=== PATIENT | male | born 1945 | race Caucasian/White ===

== ENCOUNTER 2024-01-21 13:37 | Emergency (ER) | payer OTHER, SELFPAY ==
[2024-01-21 13:40] VITALS: BP 146/50
[2024-01-21 14:08] VITALS: BP 145/63
[2024-01-21 14:17] VITALS: BMI 23.0
--- NOTE | 2024-01-21 14:19 | ED.GENMED ---
History of Present Illness
General
Chief Complaint: Rectal Bleeding
Source: patient and family
Exam Limitations: none
Time Seen by Provider: 01/21/24 13:59
Nursing documentation reviewed up to this point in time: agreed with
Travel History
Have you had any contact with someone who has COVID-19?: No
Do you have any symptoms of coronavirus? Fever > 100 degrees, chills, cough, shortness of breath, sore throat, loss of taste or smell, muscle aches, or headache?: No
History of Present Illness
History of Present Illness:
78-year-old gentleman with history of dementia, CVA, HTN, HLD, HI, Carotid endarterectomy on Pl[place], IDDM presents with family. states she went into the bathroom and the toilet water was red with blood. She flushed and had the patient come and
sit on toilet, he had no BM but she noted a little blood in toilet. She put him in the shower and blood was dripping in the tub and on the floor when he got out of the toilet. She can't figure out where it is coming from.
Pt denies pain. Denies CP, SOB, abdominal pain.
Past History
Past History
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
ED Past Surgical History: Cardiac (Stenting, carotid endarterectomy)
Social History
Tobacco: Former smoker
Alcohol: Occasional
Drug: None
Personal:
Living: with family
Review of Systems
Review of Systems
Allergies reviewed?: Yes
Unable to obtain full review of systems at this time due to: dementia
Other source history: family
All Other Systems: ROS reviewed and negative except as documented in HPI and ROS
Constitutional: Denies fever
Respiratory: Denies trouble breathing
Cardiac: Denies chest pain
ABD/GI: Denies abdominal pain, nausea, vomiting, diarrhea, bloody stools or black stools
: Reports other (anterior aspect of scrotum is very red and chaffed); Denies dysuria, frequency, difficulty voiding or urgency
Musculoskeletal: Denies edema
Neurological: Denies headache or weakness
Phy Exam
Physical Exam
Physical Exam:
GENERAL: No acute distress. A&Ox3.
CONSTITUTIONAL: Afebrile.
EYES: Clear, conjunctivae normal
ENMT: moist mucus membranes
RESPIRATORY: Regular respirations, nonlabored, lungs clear.
CARDIOVASCULAR: Regular rate and rhythm, no murmurs, no rubs.
GI: Soft, nontender, normal BS
: Urine yellow, penis uncircumcised, no indication of bleeding from urethra. Anterior surface of scrotum is erythematous, few hairs with dried blood.
Rectal: Brown stool, heme negative
MUSCULOSKELETAL: Moves with ease. Well perfused.
SKIN: Warm, dry, pink
PSYCH: Calm mood and affect. Well kept, interactive, follows commands
NEUROLOGIC: Awake, alert and demented. Not oriented. No focal neurological deficits
Course
Orders/Labs/Results
Orders:
Orders
01/21/24 14:20
Type+Screen Urgent
CMP [Comprehensive Metabolic Panel] Urgent
Complete Blood Count/With Diff Urgent
PTT Urgent
Prothrombin Time Urgent
01/21/24 14:42
Urinalysis Reflex To Culture Urgent
Date Specimen was Collected: 01/21/24
Time Specimen was Collected: 14:39
Urine Microscopic Reflex Cult Urgent
Urine Culture Urgent
JESSICA Source: U
Specimen Description:
Date Specimen was Collected: 01/21/24
Time Specimen was Collected: 14:39
01/21/24 16:10
0.9% Sodium Chloride 500 ml [Nss] 500 ml IV BOLUS
01/21/24 16:18
Fosfomycin [Monurol] 3 gm PO ONCE ONE
Abnormal Lab Results
01/21/24 01/21/24
14:20 14:42
RBC 4.18 L 10^6/uL
(4.70-6.10)
Hgb 12.7 L g/dL
(13.0-18.0)
Hct 38.4 L %
(39.0-52.0)
Absolute Monos (auto) 0.9 H 10^3/uL
(0.1-0.6)
Monocytes % 11.2 H %
(1.7-9.3)
BUN 30 H mg/dl
(9-20)
Glucose 280 H mg/dl
(70-99)
Ur Occult Blood Reflex 3+ A
(Negative)
Leukocyte Esterase Rfl 1+ A
(Negative)
Urine RBC 3-6 A /HPF
(0-2)
Urine WBC (Reflex) 26-30 A /HPF
(0-5)
Urine Bacteria (Reflex) Few A
(Negative)
Urine Glucose 3+ A
(Negative)
Urine Albumin (Reflex) 1+ A
(Neg - Trace)
01/21/24 14:20
01/21/24 14:20
Vital Signs
Initial and Last Documented VS:
Initial Vital Signs
Temp Pulse Resp BP Pulse Ox
98.1 F 62 18 146/50 96
01/21/24 13:40 01/21/24 13:40 01/21/24 13:40 01/21/24 13:40 01/21/24 13:40
Last Documented Vital Signs
Temp Pulse Resp BP Pulse Ox
98.1 F 68 16 182/76 96
01/21/24 13:40 01/21/24 17:21 01/21/24 17:21 01/21/24 17:21 01/21/24 17:21
MDM/Problems Addressed
Differential Diagnosis Includes:
hematuria, rectal bleed, skin injury to scrotum/penis
MDM/Problems Addressed:
78-year-old gentleman with history of dementia, CVA, HTN, HLD, HI, Carotid endarterectomy on [place], IDDM presents with family. states she went into the bathroom and the toilet water was red with blood. She flushed and had the patient come and
sit on toilet, he had no BM but she noted a little blood in toilet. She put him in the shower and blood was dripping in the tub and on the floor when he got out of the toilet. She can't figure out where it is coming from.
Pt denies pain. Denies CP, SOB, abdominal pain.
and son at bedside wonder if maybe he got his scrotum caught in the zipper of his jeans. Son states patient is constantly fighting with to keep his jeans on, sometimes she gets him ready for bed and that she finds it in bed with his jeans
on.
4:00 PM
CBC with no clinically significant abnormality
CMP with no clinically significant abnormality BUN 30, IV fluids infusing for mild dehydration
UA: 3+ occult blood, +1 leukocyte Estrace, nitrates negative, RBCs 3-6, WBCs 26-30, few bacteria, 3+ urine glucose and +1 urine albumin
Urine culture pending
Will give Monurol in meantime.
All test results and plan discussed with and son. All questions answered.
there is no blood on clean pad placed over penis and scrotum 1 hour ago.
Unclear where the bleeding came from, no sign of significant bleeding.
Family will observe,
*Critical Care Note
Total Time (30-74mins, 75-104mins- exclusive of procedures): Not Applicable
ED Attending Note
-
Portions of this chart may have been created with voice recognition software.� Occasional wrong word or��sound alike� substitutions may have occurred due to the inherent limitations of voice recognition software.
Discharge Plan
Departure
Patient Disposition: Home (Routine Discharge)
Date of Disposition: 01/21/24
Time of Disposition: 17:02
Patient with high blood pressure during this ER visit?: No
Condition: Good
Discharge Problem:
Abrasion of scrotum
Instructions: Abrasions ED
Prescriptions:
No Action
carvedilol 12.5 MG tablet
12.5 mg PO BID
clopidogrel 75 MG tablet
75 mg PO DAILY
rosuvastatin 40 MG tablet
20 mg PO DAILY
Levemir U-100 Insulin 1,000 UNITS/10 ML solution
18 units SC HS Qty: 1 0RF
Vitamin C Plus Zinc 200-100 mg Tablet
1 tab PO DAILY
levothyroxine 25 mcg Tablet
25 mcg PO DAILY
lisinopril 10 mg Tablet
10 mg PO DAILY
memantine 10 mg Tablet
10 mg PO DAILY
cholecalciferol (vitamin D3) [Vitamin D3] 25 mcg (1,000 unit) Tablet
25 mcg PO DAILY
magnesium citrate 100 mg Tablet
200 mg PO DAILY
alogliptin 12.5 mg Tablet
12.5 mg PO DAILY
empagliflozin 25 mg Tablet
12.5 mg PO DAILY
Referrals:
Jose Maria Castro MD [Family Provider] - As needed
Activity Restrictions/Additional Instructions:
As we discussed, I am not sure where the bleeding came from.
Urinalysis shows a potential early urinary tract infection so we treated you with 1 dose of Monurol antibiotic.
The urine cultures should be back in 2 to 3 days and if there is a need for a different antibiotic we will contact you.
Possible that you chafed the scrotum and the tip of the penis with the zipper of your pants.
There is no sign of rectal bleeding, no sign of significant bleeding from the penis.
Interventions
Interventions:
*Risk Screen - Suicide Last Done: 01/21/24 13:52
*General Assessment Last Done: 01/21/24 14:17
*Neglect/Abuse Screening Last Done: 01/21/24 13:52
ED- Fall Risk Assessment Last Done: 01/21/24 14:19
*ED COVID-19 Vaccine History Last Done: 01/21/24 13:40
*Nursing Disposition Last Done: 01/21/24 17:21
MZ-Wwmzpu-Rdhbzvegxw Assessment Last Done: 01/21/24 13:52
ED- Cardiac Assessment Last Done: 01/21/24 13:52
ED- Pulmonary Assessment Last Done: 01/21/24 13:52
Discharge Date and Time
Discharge Date/Time: 01/21/24 17:15
Print Language: CITIZEN OF [place]
[2024-01-21 14:31] LABS: % Basophils 0.3 % (0-2); % Eosinophils 2.5 % (0-6); % Immature Granulocytes 0.4 % (0-0.5); % Lymphocytes 21.5 % (20.5-51.1); % Monocytes 11.2 % (1.7-9.3); % Neutrophils 64.1 % (42.2-75.2); Absolute Eosinophils 0.2 10^3/uL (0-0.7); Absolute Lymphocytes 1.6 10^3/uL (1.2-3.4); Absolute Monocytes 0.9 10^3/uL (0.1-0.6); Absolute Neutrophils 4.9 10^3/uL (1.4-6.5); Hematocrit 38.4 % (39.0-52.0); Hemoglobin 12.7 g/dL (13.0-18.0); Mean Corp Hgb Conc. 33.1 g/dL (33.0-37.0); Mean Corpuscular Hgb 30.4 pg (27.0-31.0); Mean Corpuscular Volume 91.9 fL (80.0-94.0); Mean Platelet Volume 9.2 fL (7.4-10.4); Nucleated Red Blood Cells % 0 % (-); Platelet Count 172 10^3/uL (130-400); Red Blood Cell Count 4.18 10^6/uL (4.70-6.10); Red Cell Dist. Width 13.6 % (11.5-14.5); White Blood Cell Count 7.6 10^3/uL (4.8-10.8)
[2024-01-21 14:42] LABS: INR 1.16; PT 14.6 Sec (11.4-14.6)
[2024-01-21 14:43] LABS: APTT 26.2 Sec (23.4-35.0)
[2024-01-21 14:48] LABS: ALT (SGPT) 19 U/L (0-50); AST (SGOT) 25 U/L (17-59); Albumin 3.5 g/dl (3.5-5.0); Alkaline Phosphatase 59 U/L (38-126); Blood Urea Nitrogen 30 mg/dl (9-20); Calcium 9.2 mg/dl (8.4-10.2); Carbon Dioxide 25 mmol/L (22-30); Chloride 105 mmol/L (98-107); Estimated Creatinine Clearance 51 ml/min; Glucose 280 mg/dl (70-99); Potassium 4.6 mmol/L (3.5-5.1); Sodium 137 mmol/L (135-145); Total Bilirubin 0.4 mg/dl (0.2-1.3); Total Protein 6.5 g/dl (6.3-8.2); eGFR > 60.00
[2024-01-21 14:57] LABS: Urine Albumin 1+ (Neg - Trace); Urine Bilirubin Negative (Negative); Urine Character Clear (Clear); Urine Color Straw; Urine Glucose 3+ (Negative); Urine Ketone Negative (Negative); Urine Leukocyte 1+ (Negative); Urine Nitrite Negative (Negative); Urine Occult Blood 3+ (Negative); Urine Urobilinogen Negative (Neg - 1+)
[2024-01-21 15:00] VITALS: BP 143/62
[2024-01-21 15:34] LABS: Urine Bacteria Few (Negative); Urine Squamous Cell >30 /LPF (Few); Urine White Cell 26-30 /HPF (0-5)
[2024-01-21 16:01] VITALS: BP 158/65
[2024-01-21] MEDS: NSS 500 IV (16:19)
[2024-01-21] MEDS: MONUROL 3 GM PO (16:24)
[2024-01-21 17:00] VITALS: BP 182/76
--- NOTE | 2024-01-21 17:18 | EDRN ---
Reviewed discharge instructions with patient's . Verbalized understanding. Taken to car in wheelchair.
[2024-01-21 17:21] VITALS: BP 182/76
== END 2024-01-21 17:15 | disposition home or self-care (01) ==
LOC: EMR 13:37
PROVIDERS: Registered Nurse; EMERGENCY PHYSICIAN Emergency Medicine; FAMILY PHYSICIAN Family Medicine
DX: S30.813A Abrasion of scrotum and testes, initial encounter (principal); X58.XXXA Exposure to other specified factors, initial encounter; F03.90 Unspecified dementia, unspecified severity, without behavioral disturbance, psychotic disturbance, mood disturbance, and anxiety; I25.10 Atherosclerotic heart disease of native coronary artery without angina pectoris; I10 Essential (primary) hypertension; E78.00 Pure hypercholesterolemia, unspecified; E11.9 Type 2 diabetes mellitus without complications; Z87.891 Personal history of nicotine dependence
CPT/HCPCS: 99284; 96360; 80053; 81003; 81015; 85025; 85610; 85730; 86850; 86900; 86901; 87086

== ENCOUNTER 2024-04-22 14:32 | Inpatient (IN) | payer OTHER, SELFPAY ==
[2024-04-22 11:55] VITALS: BP 150/52
[2024-04-22 12:06] VITALS: BMI 22.7
--- NOTE | 2024-04-22 12:12 | ED.GENMED ---
History of Present Illness
General
Chief Complaint: Chest Pain
Source: patient
Exam Limitations: none
Time Seen by Provider: 04/22/24 12:03
Nursing documentation reviewed up to this point in time: agreed with
History of Present Illness
History of Present Illness:
Patient with history of CAD, dementia, as well as mild speech impairment secondary to CVA, presents to ED secondary to intermittent chest pain since last night. Per spouse, patient was grabbing his left side of the chest and expressing pain, but
was not able to provide any further information. Chest pain occurred on multiple occasions last night, as well as this morning. However, patient was able to sleep without any chest pain. Upon arrival to ED, patient is describing left side of his
chest, but unable to provide any further information at this time. Spouse states that patient has been healthy recently, without any acute changes. Patient last had heart attack over 15 years ago.
Past History
Past History
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
ED Past Surgical History: Cardiac (Stenting, carotid endarterectomy)
Social History
Tobacco: Former smoker
Alcohol: Occasional
Drug: None
Personal:
Living: with family
Review of Systems
Review of Systems
Allergies reviewed?: Yes
Unable to obtain full review of systems at this time due to: dementia
All Other Systems: Not applicable
Phy Exam
Physical Exam
Physical Exam:
Physical Exam
General: no apparent distress, not acutely ill. afebrile
Head: nc/at. eomi
Neck: supple. no meningeal signs.
Heart: s1/s2 regular rate and rhythm, no murmur. equal radial pulses.
Lungs: no acute respiratory distress. clear bilaterally. chest wall nontender to palpation
Abdomen: normal bowel sounds. not tender.
Neuro: alert and oriented. no focal neurological deficits
Skin: no rash
Psychiatric: well kept. interactive and cooperative
Extremities: no edema. no calf tenderness.
Scores
Heart Score for Chest Pain Patients
STEMI patient?: No
History: Moderately Suspicious
ECG: Normal
Age: >/= 65 years
Risk Factors: >/= 3 Risk Factors or History of CAD
Troponin: >1 - <3 x Normal Limit
Heart Score for Chest Pain Patients: 6
Heart Score Risk: 20.3% MACE over next 6 weeks
Course
Orders/Labs/Results
Orders:
Orders
04/22/24 11:49
ECG [Electrocardiogram (*1)] Urgent
Reason for Study: Chest Pain
EKG- Treatment ONCE
04/22/24 12:14
CR Chest - 2 Views Urgent
Comment:
Reason For Exam: chest pain
04/22/24 12:17
Complete Blood Count/With Diff Urgent
Comprehensive Metabolic Panel Urgent
Troponin I Urgent
04/22/24 12:20
Electrocardiogram (*1) Urgent
Reason for Study: Chest Pain
EKG- Treatment ONCE
04/22/24 13:04
Aspirin Chewable [Low Strength Aspirin] 324 mg PO NOW STA
04/22/24 13:37
Admit/Transfer Patient As Directed
Co-Sign Provider:
Level of Care: Inpatient admission
Assign to:: IVU
Physician / Group: hospitalist
Diagnosis: NSTEMI
Reason for Hospitalization: NSTEMI
Expected length of stay greater than two midnights?: Yes
ELOS- Estimated Length of Stay in days: 3
I certify the patient meets the requirements for IP care: Yes
04/22/24 13:40
PRN Pain Medication Management As Directed
May give lesser potent ordered pain med per pt: Yes
preference::
Protocol:: Medication orders for pain may be administered in a
manner that supports deferring to patient preference
when the pt is:
- Requesting an ordered lesser potent pain medication.
Least to most potent pain medications are defined
as: acetaminophen < NSAID < tramadol < opioids
(morphine, oxycodone, hydromorphone).
- Requesting a lesser dose of the same medication IF
ORDERED.
- Requesting a less intrusive route of administration
if both routes are prescribed by the provider (PO <
IV).
04/22/24 14:20
Speech Therapy Eval & Treat Routine
04/22/24 14:23
Heparin Protocol- PTT Orders As Directed
PTT per Heparin protocol: -Obtain CBC and baseline PTT - if not already collected.
-Obtain PTT 6 hours from start of infusion. Then, every 6 hours until 2 consecutive
PTT's are therapeutic. Then, PTT Daily.
-With each rate change, obtain PTT every 6 hours until 2 consecutive PTT's are
therapeutic. Then, PTT Daily.
Notify MD As Directed
Notify physician if: PTT is greater than or equal to 200.
04/22/24 14:30
Heparin 65493 Units/250 ml 25,000 units in 250 ml IV PER PROTOCOL
Weight to be used for heparin protocol in kilograms (kg):: 71.8
Protocol:: Cardiac Tx/Acute Coronary
PTT Goal Range to be used:: PTT 73 to 111 seconds
Order type:: Initial
INITIAL Infusion Dose (UNITS/KG/hr) & then follow protocol:: 12 units/kg/hr
Infusion Dose in UNITS/hr & then follow protocol (UNITS/hr):: 850
INFUSION RATE in mL/hr & then follow protocol (mL/hr):: 8.5
PTT less than or equal to 64 seconds:: Increase rate by 200 units/hr (+ 2 mL/hr)
PTT 64.1 to 72.9 seconds:: Increase rate by 100 units/hr (+ 1 mL/hr)
PTT 73 to 111 seconds:: Target Range. No change in rate.
PTT 111.1 to 130.9 seconds:: Decrease rate by 100 units/hr (- 1 mL/hr)
PTT 131 to 199.9 seconds:: HOLD for 1 hr. Then decrease rate by 200 units/hr (- 2 mL/hr)
PTT greater than or equal to 200 seconds:: HOLD for 2 hrs & Notify Provider. Then decrease by 200 units/hr (-
2 mL/hr)
Lab follow-up:: Each change, PTT q6h until 2 consecutive are therapeutic. Then PTT
daily.
04/22/24 14:48
COVID-19 Antigen Urgent
Source: Nasal Swab
Complete Blood Count/No Diff Urgent
Comment: Obtain baseline before beginning heparin infusion if not already collected
PTT Urgent
Comment: Obtain baseline before beginning heparin infusion if not already collected
04/22/24 16:00
CefTRIAXone [Rocephin] 1,000 mg IV Q24H
Sterile Water [Sterile Water For Injection] 10 ml IV Q24H
04/22/24 17:09
Heparin Protocol- PTT Orders As Directed
PTT per Heparin protocol: -Obtain CBC and baseline PTT - if not already collected.
-Obtain PTT 6 hours from start of infusion. Then, every 6 hours until 2 consecutive
PTT's are therapeutic. Then, PTT Daily.
-With each rate change, obtain PTT every 6 hours until 2 consecutive PTT's are
therapeutic. Then, PTT Daily.
Notify MD As Directed
Notify physician if: PTT is greater than or equal to 200.
04/22/24 17:47
Complete Blood Count/No Diff Urgent
Comment: Obtain baseline before beginning heparin infusion if not already collected
PTT Urgent
Comment: Obtain baseline before beginning heparin infusion if not already collected
Troponin I Urgent
04/23/24 06:00
Levothyroxine [Synthroid] 75 mcg PO DAILY @ 0600
04/23/24 08:00
Cholecalciferol (Vitamin D3) [VITAMIN D3 (cholecalciferol)] 50 mcg PO DAILY
Dapagliflozin [Farxiga] 10 mg PO DAILY
Memantine HCl [Namenda] 10 mg PO DAILY
Rosuvastatin Calcium [Crestor] 20 mg PO DAILY
Sitagliptin Phosphate [Januvia] 100 mg PO DAILY
ascorbic acid-zinc sulfate 1 tablet PO DAILY
magnesium glycinate 100 mg PO DAILY
04/24/24 04:40
Complete Blood Count/No Diff Q2D
Comment: Notify MD if platelet count is <130,000 or decreases by 50% from baseline
04/26/24 06:00
Complete Blood Count/No Diff Q2D
Comment: Notify MD if platelet count is <130,000 or decreases by 50% from baseline
04/28/24 06:00
Complete Blood Count/No Diff Q2D
Comment: Notify MD if platelet count is <130,000 or decreases by 50% from baseline
04/30/24 06:00
Complete Blood Count/No Diff Q2D
Comment: Notify MD if platelet count is <130,000 or decreases by 50% from baseline
05/02/24 06:00
Complete Blood Count/No Diff Q2D
Comment: Notify MD if platelet count is <130,000 or decreases by 50% from baseline
05/04/24 06:00
Complete Blood Count/No Diff Q2D
Comment: Notify MD if platelet count is <130,000 or decreases by 50% from baseline
05/06/24 06:00
Complete Blood Count/No Diff Q2D
Comment: Notify MD if platelet count is <130,000 or decreases by 50% from baseline
05/08/24 06:00
Complete Blood Count/No Diff Q2D
Comment: Notify MD if platelet count is <130,000 or decreases by 50% from baseline
Abnormal Lab Results
04/22/24
12:17
RBC 4.20 L 10^6/uL
(4.70-6.10)
Hgb 12.8 L g/dL
(13.0-18.0)
Hct 38.9 L %
(39.0-52.0)
MCHC 32.9 L g/dL
(33.0-37.0)
Absolute Monos (auto) 0.7 H 10^3/uL
(0.1-0.6)
BUN 30 H mg/dl
(9-20)
Glucose 277 H mg/dl
(70-99)
Troponin I 0.405 H* ng/ml
04/22/24 12:17
04/22/24 12:17
Vital Signs
Initial and Last Documented VS:
Initial Vital Signs
Temp Pulse Resp BP Pulse Ox
98.0 F 60 16 150/52 97
04/22/24 11:55 04/22/24 11:55 04/22/24 11:55 04/22/24 11:55 04/22/24 11:55
Last Documented Vital Signs
Temp Pulse Resp BP Pulse Ox
97.9 F 64 17 149/54 96
04/24/24 04:31 04/23/24 19:45 04/24/24 04:31 04/23/24 19:02 04/24/24 04:31
MDM/Problems Addressed
MDM/Problems Addressed:
History, exam, and blood work concerning for non-STEMI. Patient remains chest pain-free during observation, along with stable vital signs.
Aspirin 325 mg given. Further treatment, pending cardiology consultation.
Dr. Napoles, cardiology, contacted via [facility] text, who will come and evaluate patient in ED.
*EKG
Interpreted by ED Provider?: Yes
EKG Intrepretation Date: 04/22/24
Heart Rate: 61
Rate: normal
Rhythm: sinus
[address]: normal axis
Interval: first degree heart block
QRS Pattern: left bundle branch block
*Critical Care Note
Total Time (30-74mins, 75-104mins- exclusive of procedures): Not Applicable
ED Attending Note
-
Portions of this chart may have been created with voice recognition software.� Occasional wrong word or��sound alike� substitutions may have occurred due to the inherent limitations of voice recognition software.
Discharge Plan
Departure
Patient Disposition: Admit
Date of Disposition: 04/22/24
Time of Disposition: 13:09
Admit to: Telemetry
Presentation/result/management discussed w/ accepting MD/DO: Hospitalist
Discharge Problem:
Non-ST elevation HI (NSTEMI)
Interventions
Interventions:
*Risk Screen - Suicide Last Done: 04/22/24 18:24
*General Assessment Last Done: 04/22/24 11:53
*Neglect/Abuse Screening Last Done: 04/22/24 11:53
*ED COVID-19 Vaccine History Last Done: 04/22/24 18:19
*Nursing Disposition Last Done: 04/22/24 17:23
ED- Cardiac Assessment Last Done: 04/22/24 12:22
Discharge Date and Time
Discharge Date/Time: 04/22/24 17:25
[2024-04-22 12:35] LABS: % Basophils 0.3 % (0-2); % Eosinophils 3.3 % (0-6); % Immature Granulocytes 0.3 % (0-0.5); % Lymphocytes 21.5 % (20.5-51.1); % Monocytes 8.5 % (1.7-9.3); % Neutrophils 66.1 % (42.2-75.2); Absolute Eosinophils 0.3 10^3/uL (0-0.7); Absolute Lymphocytes 1.9 10^3/uL (1.2-3.4); Absolute Monocytes 0.7 10^3/uL (0.1-0.6); Absolute Neutrophils 5.7 10^3/uL (1.4-6.5); Hematocrit 38.9 % (39.0-52.0); Hemoglobin 12.8 g/dL (13.0-18.0); Mean Corp Hgb Conc. 32.9 g/dL (33.0-37.0); Mean Corpuscular Hgb 30.5 pg (27.0-31.0); Mean Corpuscular Volume 92.6 fL (80.0-94.0); Mean Platelet Volume 9.5 fL (7.4-10.4); Nucleated Red Blood Cells % 0 % (-); Platelet Count 141 10^3/uL (130-400); Red Cell Dist. Width 13.5 % (11.5-14.5); White Blood Cell Count 8.7 10^3/uL (4.8-10.8)
[2024-04-22 12:46] LABS: ALT (SGPT) 20 U/L (0-50); AST (SGOT) 26 U/L (17-59); Albumin 3.5 g/dl (3.5-5.0); Alkaline Phosphatase 68 U/L (38-126); Blood Urea Nitrogen 30 mg/dl (9-20); Calcium 9.7 mg/dl (8.4-10.2); Carbon Dioxide 25 mmol/L (22-30); Chloride 105 mmol/L (98-107); Estimated Creatinine Clearance 46 ml/min; Glucose 277 mg/dl (70-99); Potassium 4.7 mmol/L (3.5-5.1); Sodium 140 mmol/L (135-145); Total Bilirubin 0.4 mg/dl (0.2-1.3); Total Protein 6.4 g/dl (6.3-8.2); eGFR 55.53
--- NOTE | 2024-04-22 12:54 | PHANOTE ---
Insulin degludec and levothyroxine doses verified with [facility] in [facility] [[phone]].
[2024-04-22 12:58] LABS: Troponin I 0.405 ng/ml
[2024-04-22] MEDS: LOW STRENGTH ASPIRIN 324 MG PO (13:14)
[2024-04-22 13:20] VITALS: BP 142/95
--- NOTE | 2024-04-22 14:37 | HPS.HSE ---
Family Physician
-
Family Physician: Jose Maria Castro
Chief Complaint
-
Chest pain
History of Present Illness
78-year-old male with past medical history of hypertension, hyperlipidemia, ME x2 s/p stent placed TIA type 2 diabetes, COPD (emphysema) dementia, left bundle branch block, ischemic cardiomyopathy former smoker, presented to the ED with chest pain.
at bedside states that patient complained of chest pain yesterday night after dinner. He described the left sided chest pain as dull,crushing, non radiating to the shoulders, which comes and goes. They had chicken paulson and she presumed
that it could be heartburn for which she gave him 2 Tums. Patient did not wake up at night with chest pain. He woke up only to use the restroom. This morning patient reported of similar pain and decided to bring him to the ED patient denies
chest pain, shortness of breath, palpitations. He does have speech deficit due to prior stroke. At this time he denies any chest pain. He follows cardiology Dr. Cavanaugh outpatient. Previous echocardiogram was done 1 year ago which showed EF 45%,
stage I diastolic dysfunction.
Medical History
Past Medical History
Past Medical History: Reports CAD, CHF, COPD, CVA, Dementia, HTN, Hypercholesterolemia, Hypothyroidism and IDDM
Past Surgical History: Reports Cardiac (right carotid endarterectomy, stent placement)
Social History
Unable to obtain full social history at this time due to: Dementia
Tobacco: Former Smoker
Alcohol: None
Drug: None
Personal:
Living: With Family
Employment: Retired
Family History
Family History: Not pertinent
Allergies / Home Medications
Allergies reflects when Allergies were last updated in [employer]
Home Medications with original date entered in [employer]
Allergy/Medication List:
Allergies
Allergy/AdvReac Type Severity Reaction Status Date / Time
No Known Allergies Allergy Verified 04/22/24 11:54
Home Medications
clopidogrel 75 mg tablet 75 mg PO DAILY Blood Clot Prevention/Tx 05/27/16
rosuvastatin 40 mg tablet 20 mg PO DAILY high cholesterol 05/27/16
alogliptin 12.5 mg tablet 12.5 mg PO DAILY diabetes 01/21/24
ascorbic acid 100 mg-zinc sulfate 200 mg tablet 1 tab PO DAILY supplement 01/21/24
cholecalciferol (vitamin D3) 25 mcg (1,000 unit) tablet (Vitamin D3) 50 mcg PO DAILY supplement 01/21/24
empagliflozin 25 mg tablet 12.5 mg PO DAILY diabetes 01/21/24
lisinopril 10 mg tablet 10 mg PO DAILY blood pressure 01/21/24
memantine 10 mg tablet 10 mg PO DAILY cognition/memory 01/21/24
carvedilol 25 mg tablet 12.5 mg PO BID blood pressure 04/22/24
insulin degludec 100 unit/mL (3 mL) subcutaneous pen 16 unit SC HS diabetes 04/22/24
levothyroxine 75 mcg tablet 75 mcg PO DAILY hypothyroidism 04/22/24
magnesium glycinate 100 mg (as glycinate) tablet 100 mg PO DAILY supplement 04/22/24
Review of Systems
-
History Source: Patient and Family
Cardiac: Reports Chest Pain
Physical Exam
Vital Signs
Vital Signs
Temp Pulse Resp BP Pulse Ox
98.0 F 62 19 142/95 96
04/22/24 11:55 04/22/24 13:20 04/22/24 13:20 04/22/24 13:20 04/22/24 13:20
Physical Exam
General: Comfortable and Conversant
HEENT: NormoCephalic and Moist mucous membranes
Respiratory: Clear
Cardiac: Regular Rhythm and Murmur (systolic left upper ans mid sternal )
GI: Soft, Non Tender and Non Distended
Musculoskeletal: No Edema
Neuro: AO x 3, No Motor Deficits and Slurred Speech
Psych: Calm
Laboratory Results
-
04/22/24 12:17
Laboratory Results
Total Bilirubin 0.4 mg/dl (0.2-1.3) 04/22/24 12:17
AST 26 U/L (17-59) 04/22/24 12:17
ALT 20 U/L (0-50) 04/22/24 12:17
Alkaline Phosphatase 68 U/L (38-126) 04/22/24 12:17
Troponin I 0.405 ng/ml H* 04/22/24 12:17
Data Reviewed
-
Medical Tests (Nuc Med, Echo, EKG etc): Report Reviewed by me and Discussed with Physician
Lab Data: Labs Reviewed by me and Discussed with Physician
Impression/Plan
-
IMPRESSION:
Chest pain likely due to non-STEMI
Cough likely related to aspiration pneumonia
History of TIA
Type 2 diabetes mellitus
Hyperlipidemia
Hypertension
Dementia
PLAN:
Chest pain likely due to NSTEMI
Transfer to IVU
Morphine, oxygen, nitroglycerin, aspirin
Troponin is 0.405, trend troponin levels every 3-6 hours
Repeat EKG
Continue high intensity statin - Rosuvastatin 40 mg
Antiplatelet therapy- Aspirin 81 plus Plavix 75
Start heparin GTT to prevent clot
Check echocardiogram
Consults cardiology
Cough likely aspiration PNA
Cough has been chronic but due to patient's dementia and he was inhaling food, he is at a risk for aspirations.
Patient is afebrile with no leukocytosis
CXR - right perihilar region extending along the minor fissure to the lateral pleural surface consistent with pneumonia
Start IV ceftriaxone 1000 mg every 24
Monitor WBC and temperature curve
Speech and swallow study
History of TIA
Managed with Plavix and statin
Good motor strength, alert to time, place and person
Type 2 diabetes mellitus
Continue to monitor blood glucose level
Start Lantus 16 units and ISS
Non modifiable macrovascular complication of diabetes is CAD,PAD. and CVD
Hyperlipidemia
Check lipid panel
Continue rosuvastatin
Hypertension
Hold lisinopril due to cough
Dementia
Speech and swallow study
CODE STATUS-DNR
DVT prophylaxis-heparin
Diet - 2g sodium
[2024-04-22] MEDS: HEPARIN 25000 UNITS/250 ML IV (14:55)
[2024-04-22 15:03] LABS: Hematocrit 36.4 % (39.0-52.0); Hemoglobin 12.2 g/dL (13.0-18.0); Mean Corp Hgb Conc. 33.5 g/dL (33.0-37.0); Mean Corpuscular Hgb 29.8 pg (27.0-31.0); Mean Corpuscular Volume 88.8 fL (80.0-94.0); Mean Platelet Volume 9.4 fL (7.4-10.4); Platelet Count 144 10^3/uL (130-400); Red Cell Dist. Width 13.4 % (11.5-14.5); White Blood Cell Count 8.6 10^3/uL (4.8-10.8)
--- NOTE | 2024-04-22 15:09 | CM ---
CM was updated that patient's family has been working with [facility]. Initial plan was to have patient be placed in [facility] for respite through the NH. Patient's is frail and unable to provide care to patient. Patient's son picked
patient up to bring to [facility], but patient complained of chest pain. Plan for admission. CM spoke with Parris at [facility]. Plan for possible skilled stay after hospitalization.
CM will sent referral to [facility].
[2024-04-22 15:10] LABS: APTT 26.1 Sec (23.4-35.0)
[2024-04-22 15:17] LABS: COVID-19 Antigen Negative (Negative)
[2024-04-22 15:23] LABS: Troponin I 0.407 ng/ml
[2024-04-22 15:39] VITALS: BP 174/63
--- NOTE | 2024-04-22 15:47 | PTOTSP ---
SPEECH THERAPY SWALLOW EVALUATION:
Patient exhibits clinical signs of oropharyngeal dysphagia, likely chronic related to dementia, CVA, COPD. Patient currently admitted with concern for aspiration pneumonia. History of aspiration pneumonia ~6 years ago. Patient exhibiting
inconsistent signs of aspiration at bedside; RN and reported inconsistent coughing. Patient remains at risk for aspiration and related complications given impulsivity, confusion, and current tenuous pulmonary status. Recommend Videofluoroscopic
Swallowing Study to further assess swallow physiology at this time. Recommend IDDSI Level 6 Soft and Bite Size diet, thin liquids (small single sips), until VSE with aspiration precautions in place. Medications whole in applesauce, one at a time.
Aspiration precautions: 100% supervision with meals; Assistance with feeding as needed; Upright positioning; Close monitoring/verbal cueing to ensure small bites/sips; Slow rate of intake; Oral care 3x/day; Monitor for signs of aspiration; D/c oral
diet if any decline in mental or respiratory status. Speech therapy to follow and provide additional recommendations following VSE. Discussed results with RN, Dr. Perez, and pt/ who were in agreement.
RECOMMEND:
1) Videofluoroscopic Swallowing Study
2) IDDSI Level 6 Soft and Bite Size diet, thin liquids (small single sips)
3) Medications whole in applesauce, one at a time
4) Aspiration precautions: 100% supervision with meals; Assistance with feeding as needed; Upright positioning; Close monitoring/verbal cueing to ensure small bites/sips; Slow rate of intake; Oral care 3x/day; Monitor for signs of aspiration; D/c
oral diet if any decline in mental or respiratory status
5) ST to follow
--- NOTE | 2024-04-22 15:53 | W.PN.UPDATE ---
Update Note
Progress Note Update
Patient is at aspiration risk per speech and swallow study. Ordered VSE and changed diet to soft bite sized (IDDSI-6)
--- NOTE | 2024-04-22 16:29 | CON.CAR ---
Addendum entered and electronically signed by Juan Napoles MD 04/22/24 16:58:
I saw and examined the patient.
The [employer]'s note was reviewed and I agree with the note.
Comment:
GEN: No distress, awake, Ox3
HEENT: supple, anicteric, mmm
LUNGS: CTA, no wheezes/rales
CV: Reg, S1/S2, 1/6 syst LSB, no gallop
ABD: soft, BS+, NT/ND
EXT: No edema
NEURO: + expresive aphasia
SKIN: No rash
Plan:
78-year-old man with past medical history of CVA, left bundle branch block, LAD stent/known coronary artery disease presents with chest tightness for 12 to 24 hours. He has known expressive aphasia and difficulty communicating but states that he
had chest tightness last night and this morning. His pain resolved but cardiac troponin was found to be 0.4. EKG has a known left bundle branch block. He currently is pain-free.
Likely non-STEMI. Add aspirin, continue Plavix, and start IV heparin.
Continue carvedilol, lisinopril, and rosuvastatin. Check lipids.
We will check an echocardiogram. Pending results of the echocardiogram and his clinical course we will discuss invasive versus medical therapy status.
With his mild dementia and history of stroke would be reasonable to consider medical therapy.
Discussed with will discuss further his family in the a.m.
Original Note:
Consultation
Consultation Request
Date/Time Consultation Requested: 04/22/24
Date/Time Consultation Performed: 04/22/24
Requesting Provider: Dr. Perez
Performing Provider: Dr. Napoles
Reason for Consultation: Chest pain
Medical History
-
History of Present Illness:
[facility] with chest pain and cardiology has been consulted. Patient lives at home with his and has expressive aphasia, but is able to stand on his own and walk around the home and driveway. Patient grabbed his chest
last night and his asked him if he was in pain and he said yes. Patient took 2 TUMS and belched and seemed to feel better, but pain returned an hour later. Patient eventually fell asleep without additional intervention. Patient awoke today and
seemed to be feeling well, he ate his breakfast without issue, but an hour later his saw him grabbing his chest again and asked him if he was having pain and he said yes. Patient denies chest pain currently. Initial Troponin 0.4. ECG shows
chronic LBBB. Patient has a h/o CAD. He previously followed at [facility] with Dr. Meneses. Patient had a cath at [facility] in 2001 that showed a patent previously placed LAD stent and a LEAD RELAY TESTER of the RCA. Patient had a cath at 2012 that showed a patent LAD stent
and known LEAD RELAY TESTER RCA. Last ischemic evaluation was in 2020 when he was diagnosed with lung cancer. Patient with a large fixed defect on mibi imaging. Patient completed radiation therapy for his lung cancer.
PMH:
CAD
s/p PCI, possibly LAD, at [facility] in 1992
DC and LAD PCI at [facility] 2001
patent LAD stent and LEAD RELAY TESTER RCA by cath at 2012
ICM EF 35% by echo 10/2019, improved to 45% by echo 03/06/23
cLBBB
PAD
s/p Right CEA and known LEAD RELAY TESTER left carotid
h/o CVA with residual expressive aphasia
Hypertension
Diabetes
History of AAA 3.5 cm
Former smoker
Past Medical History
Past Medical History: Other (in HPI)
Past Surgical History: Other (right CEA, PCI 1992, 2001)
Social History
Tobacco: Former Smoker
Alcohol: Occasional
Drug: None
Personal:
Living: With Family
Family History
Family History: CAD and Diabetes
Allergies / Home Medications
Allergy/AdvReac Type Severity Reaction Status Date / Time
No Known Allergies Allergy Verified 04/22/24 11:54
�Medication �Instructions �Recorded �Confirmed �Type
clopidogrel 75 mg tablet 75 mg PO DAILY Blood Clot 05/27/16 04/22/24 History
Prevention/Tx
rosuvastatin 40 mg tablet 20 mg PO DAILY high cholesterol 05/27/16 04/22/24 History
alogliptin 12.5 mg tablet 12.5 mg PO DAILY diabetes 01/21/24 04/22/24 History
ascorbic acid 100 mg-zinc sulfate 1 tab PO DAILY supplement 01/21/24 04/22/24 History
200 mg tablet
cholecalciferol (vitamin D3) 25 50 mcg PO DAILY supplement 01/21/24 04/22/24 History
mcg (1,000 unit) tablet (Vitamin
D3)
empagliflozin 25 mg tablet 12.5 mg PO DAILY diabetes 01/21/24 04/22/24 History
lisinopril 10 mg tablet 10 mg PO DAILY blood pressure 01/21/24 04/22/24 History
memantine 10 mg tablet 10 mg PO DAILY cognition/memory 01/21/24 04/22/24 History
carvedilol 25 mg tablet 12.5 mg PO BID blood pressure 04/22/24 04/22/24 History
insulin degludec 100 unit/mL (3 16 unit SC HS diabetes 04/22/24 04/22/24 History
mL) subcutaneous pen
levothyroxine 75 mcg tablet 75 mcg PO DAILY hypothyroidism 04/22/24 04/22/24 History
magnesium glycinate 100 mg (as 100 mg PO DAILY supplement 04/22/24 04/22/24 History
glycinate) tablet
Review of Systems
-
History Source: Patient and Family ( in room)
All other systems: Negative unless noted
Physical Exam
Vital Signs
Temp Pulse Resp BP Pulse Ox
98.0 F 55 16 174/63 98
04/22/24 11:55 04/22/24 15:39 04/22/24 15:39 04/22/24 15:39 04/22/24 15:39
GEN: NAD. Expressive aphasia
HEENT: EOMI, MMM
LUNGS: CTA B/L, no wheezes or rales B/L
CV: Reg, S1/S2, no murmur
ABD: soft, BS+, NT, ND
EXT: No clubbing, cyanosis, lesions or edema B/L
NEURO: Gross non-focal
SKIN: Warm, dry and pink. No rash
Lab Results
04/22/24 14:48
04/22/24 12:17
Troponin I 0.407 ng/ml H* 04/22/24 14:48
Impression / Plan
-
PCP: Dr. Castro
Cardiology: Dr. Cavanaugh
Impression:
Chest pain
NSTEMI, initial Troponin 0.4
CAD
s/p PCI, possibly LAD, at [facility] in 1992
DC and LAD PCI at [facility] 2001
patent LAD stent and LEAD RELAY TESTER RCA by cath at 2012
ICM EF 35% by echo 10/2019, improved to 45% by echo 03/06/23
cLBBB
PAD
s/p Right CEA and known LEAD RELAY TESTER left carotid
h/o CVA with residual expressive aphasia
Hypertension
Diabetes
History of AAA 3.5 cm
Former smoker
Echo 03/06/23: EF 45% with severe distal anteroseptal and apical hypokinesis, stage I diastolic dysfunction, mild MR
Plan:
-[facility] from home with chest pain and cardiology has been consulted. Patient lives at home with his and has expressive aphasia, but is able to stand on his own and walk around the home and driveway. Patient grabbed his chest
last night and his asked him if he was in pain and he said yes. Patient took 2 TUMS and belched and seemed to feel better, but pain returned an hour later. Patient eventually fell asleep without additional intervention. Patient awoke today and
seemed to be feeling well, he ate his breakfast without issue, but an hour later his saw him grabbing his chest again and asked him if he was having pain and he said yes. Patient denies chest pain currently. Initial Troponin 0.4. ECG shows
chronic LBBB. Patient has a h/o CAD. He previously followed at [facility] with Dr. Meneses. Patient had a cath at [facility] in 2001 that showed a patent previously placed LAD stent and a LEAD RELAY TESTER of the RCA. Patient had a cath at 2012 that showed a patent LAD stent
and known LEAD RELAY TESTER RCA. Last ischemic evaluation was in 2020 when he was diagnosed with lung cancer. Patient with a large fixed defect on mibi imaging. Patient completed radiation therapy for his lung cancer.
-Patient with chest pain and elevated Troponin. The LBBB is chronic on ECG reviewed by me. Agree with starting Heparin gtt no bolus
-Trend Troponin
-Check echo today
-Talked about management options with patient's bedside in the ER. Patient is 78 years old with previous CVA and residual aphasia, but is independent in ADLs at home. reports increasing dementia symptoms at home and he takes Namenda.
-Check CVE. Cont Crestor 20 mg daily
-Cont his usual dose of Plavix for h/o CVA, will also add aspirin
-Cont Coreg 12.5 mg BID
-Cont lisinopril 10 mg daily
[2024-04-22 17:22] VITALS: BP 192/70
--- NOTE | 2024-04-22 17:45 | PTCARENOTE ---
Rec'd pt from ED after ECHO; Pt AAOX1, confused to time & place, oriented to name only. Pt very forgetful w/expressive aphasia at baseline. Pt w/no c/o CP or SOB. Pt assisted from stretcher to bed w/2P assist. Pt very unsteady. Bed alarm placed for
safety. After speaking w/pt's spouse & upon assessment, medsitter put in place for closer observation & for pt safety. Pt's HR in the 50's, BP elevated upon arrival to the floor, but pt agitated on arrival. Pt w/Heparin drip infusing through patent
IV line as ordered. Admission assesemnt completed w/ at bedside. Plan of care ongoing.
[2024-04-22 17:49] LABS: Glucose - Point of Care 80 mg/dl (70-99)
[2024-04-22 18:00] VITALS: BMI 21.7
[2024-04-22 18:07] LABS: Hematocrit 39.3 % (39.0-52.0); Hemoglobin 12.8 g/dL (13.0-18.0); Mean Corp Hgb Conc. 32.6 g/dL (33.0-37.0); Mean Corpuscular Hgb 28.9 pg (27.0-31.0); Mean Corpuscular Volume 88.7 fL (80.0-94.0); Mean Platelet Volume 9.7 fL (7.4-10.4); Platelet Count 155 10^3/uL (130-400); Red Blood Cell Count 4.43 10^6/uL (4.70-6.10); Red Cell Dist. Width 13.4 % (11.5-14.5); White Blood Cell Count 9.1 10^3/uL (4.8-10.8)
[2024-04-22] MEDS: NOVOLOG FLEXPEN-LOW RESISTANCE SC (18:08)
[2024-04-22 18:10] LABS: APTT 45.9 Sec (23.4-35.0)
[2024-04-22 18:26] LABS: Troponin I 0.366 ng/ml
[2024-04-22] MEDS: PROTONIX 40 MG PO (18:37)
[2024-04-22] MEDS: ROCEPHIN 1000 MG IV (18:38)
[2024-04-22] MEDS: STERILE WATER FOR INJECTION 10 ML IV (18:38)
[2024-04-22] MEDS: FLUSH (NSS) 2 FLUSH IV (18:38)
[2024-04-22 20:58] VITALS: BP 153/65
[2024-04-22] MEDS: COREG 12.5 MG PO (20:58)
[2024-04-22 21:16] LABS: Glucose - Point of Care 161 mg/dl (70-99)
[2024-04-22] MEDS: LANTUS 0.16 UNITS SC (21:17)
[2024-04-23 00:50] VITALS: BP 139/61
[2024-04-23 01:24] LABS: APTT 111.8 Sec (23.4-35.0)
[2024-04-23 01:45] LABS: Troponin I 0.348 ng/ml
[2024-04-23 01:55] LABS: HDL Cholesterol 50 mg/dl; LDL Cholesterol, Calculated 78 mg/dl; Total Cholesterol 148 mg/dl (50-199); Triglyceride 103 mg/dl (10-149); Very Low Density Lipoprotein 20 mg/dl (0-30)
--- NOTE | 2024-04-23 02:48 | PTCARENOTE ---
Pt received start of shift, HR SR 1st degree AV block w/ BBB. Pt is very confused and sometimes aggressive. AAOx1 - only oriented to self. Medsitter monitoring pt, bed alarm on pt. Heparin currently infusing at 950u/hr. Pt incontinent of urine at
times. Pt denies any CP, SOB, or lightheadedness/dizziness. Pt NPO @ 0000.
[2024-04-23 06:06] VITALS: BP 136/51
--- NOTE | 2024-04-23 08:00 | PTCARENOTE ---
Assumed care of pt from prev nsg shift, AAOX1, pt confused to time & place, which is unchanged from baseline. Pt w/expressive aphasia but able to make needs known. Pt w/medsitter & bed alarm in place for safety, but still making frequent attempts to
get OOB unassisted & pulling at IV line & telemonitor. 1:[address] for additional safety measure. VS stable w/HR in the 50's-60's & BP this AM 167/79. Pt sent for video swallow exam this AM. Pt's spouse & son in to meet w/physicians
to discuss ongoing plan of care. Plan ongoing.
[2024-04-23 08:04] VITALS: BP 167/79
[2024-04-23 08:31] LABS: Glucose - Point of Care 90 mg/dl (70-99)
[2024-04-23 08:46] LABS: % Basophils 0.3 % (0-2); % Eosinophils 3.8 % (0-6); % Immature Granulocytes 0.7 % (0-0.5); % Lymphocytes 16.6 % (20.5-51.1); % Monocytes 8.2 % (1.7-9.3); % Neutrophils 70.4 % (42.2-75.2); Absolute Eosinophils 0.4 10^3/uL (0-0.7); Absolute Immature Granulocytes 0.1 10^3/uL (0-0.05); Absolute Lymphocytes 1.7 10^3/uL (1.2-3.4); Absolute Monocytes 0.9 10^3/uL (0.1-0.6); Absolute Neutrophils 7.4 10^3/uL (1.4-6.5); Hematocrit 40.2 % (39.0-52.0); Hemoglobin 13.1 g/dL (13.0-18.0); Mean Corp Hgb Conc. 32.6 g/dL (33.0-37.0); Mean Corpuscular Hgb 28.7 pg (27.0-31.0); Mean Platelet Volume 9.3 fL (7.4-10.4); Nucleated Red Blood Cells % 0 % (-); Platelet Count 146 10^3/uL (130-400); Red Blood Cell Count 4.57 10^6/uL (4.70-6.10); Red Cell Dist. Width 13.3 % (11.5-14.5); White Blood Cell Count 10.5 10^3/uL (4.8-10.8)
[2024-04-23] MEDS: NOVOLOG FLEXPEN-LOW RESISTANCE SC ×2 (08:47→17:33)
[2024-04-23 09:02] LABS: APTT 114.1 Sec (23.4-35.0)
--- NOTE | 2024-04-23 09:11 | W.PN.CARDCBS ---
Addendum entered and electronically signed by Noman Cavanaugh DO 04/23/24 12:17:
I saw and examined the patient.
The [employer]'s note was reviewed and I agree with the note.
Comment:
Plan:
Reviewed echo and findings with pt, and son.
Peak trop 0.4.
Discussed anticoagulation given new LV thrombus in apex in setting of TX and worsening EF.
Transition to Eliquis and Plavix in AM and stop ASA. Would continue 3 months of Eliquis and Plavix and then just Plavix. If he develops falls family will reach out and would have low threshold to stop anticoagulation.
Statin increased.
Family wishes for more conservative approach given his progressively worsening dementia so they decline cath. This is not unreasonable given his comorbidities. Son admits that he does not feel is father is the same person anymore because of his
significant dementia.
Will arrange outpt follow up.
He will have a prolonged rehab stay and respite as his had recent stroke as per son.
Original Note:
Today's Communication / Plan
-
Increase Crestor
No cath
Transition from heparin gtt to Eliquis and Plavix in AM
Impression / Plan
-
PCP: Dr. Castro
Cardiology: Dr. Cavanaugh
Impression:
Chest pain
NSTEMI, initial Troponin 0.405, peaked at 0.407
CAD
s/p PCI, possibly LAD, at [facility] in 1992
TX and LAD PCI at [facility] 2001
patent LAD stent and FIELD STAFF RCA by cath at 2012
ICM EF 35% by echo 10/2019, improved to 45% by echo 03/06/23, down to 35% by echo 04/22/24
cLBBB
PAD
s/p Right CEA and known FIELD STAFF left carotid
h/o CVA with residual expressive aphasia
Hypertension
Diabetes
History of AAA 3.5 cm
Former smoker
LV thrombus on echo 04/22/24
Echo 03/06/23: EF 45% with severe distal anteroseptal and apical hypokinesis, stage I diastolic dysfunction, mild MR
Echo 04/22/24: EF 35%, stage I diastolic dysfunction, mild MR, new apical LV thrombus present
Plan:
-No chest pain overnight. Troponin was 0.405 on admission and peaked at 0.407 and now trending down. EF down to 35% by echo. ECG with cLBBB. Patient with a h/o CAD including FIELD STAFF RCA and patent LAD stent by last cath in 2012. Family meeting with
patient's and son, is POA, but son very involved. Discussed options of cath vs medical management. Outlined risks vs benefits of cath. Outlined meds for medical therapy. Made a plan to proceed with medical therapy given patient's
progressive cognitive decline.
-Heparin gtt until 04/24/24 AM.
-Outpatient dose of Plavix has been continued
-Started on aspirin 04/22/24.
-LV thrombus seen on echo. Will start Eliquis 5 mg BID (age 78, Cre 1.0, wt 68 kg) when Heparin gtt stops. Would continue Plavix and Eliquis alone and stop aspirin after 04/23/24 dose.
-EF down to 35%. GDMT includes outpatient doses of Coreg 12.5 mg BID, lisinopril 10 mg daily and Farxiga 12.5 mg daily.
-LDL 78. Will increase Crestor to 40 mg daily.
-Would not consult cardiac rehab due to need for PT/OT
HPI: Patient came to [facility] today from home with chest pain and cardiology has been consulted. Patient lives at home with his and has expressive aphasia, but is able to stand on his own and walk around the home and driveway. Patient grabbed his
chest last night and his asked him if he was in pain and he said yes. Patient took 2 TUMS and belched and seemed to feel better, but pain returned an hour later. Patient eventually fell asleep without additional intervention. Patient awoke
today and seemed to be feeling well, he ate his breakfast without issue, but an hour later his saw him grabbing his chest again and asked him if he was having pain and he said yes. Patient denies chest pain currently. Initial Troponin 0.4. ECG
shows chronic LBBB. Patient has a h/o CAD. He previously followed at [facility] with Dr. Meneses. Patient had a cath at [facility] in 2001 that showed a patent previously placed LAD stent and a FIELD STAFF of the RCA. Patient had a cath at 2012 that showed a patent LAD
stent and known FIELD STAFF RCA. Last ischemic evaluation was in 2020 when he was diagnosed with lung cancer. Patient with a large fixed defect on mibi imaging. Patient completed radiation therapy for his lung cancer.
Progress Note - It Administrative Assistant
Subjective
Date of Service: April 23, 2024
No chest pain overnight
Objective
Labs:
04/23/24 08:29
Labs
Hgb 13.1 g/dL (13.0-18.0) 04/23/24 08:29
Hct 40.2 % (39.0-52.0) 04/23/24 08:29
Plt Count 146 10^3/uL (130-400) 04/23/24 08:29
APTT 114.1 Sec (23.4-35.0) H 04/23/24 08:29
Sodium 140 mmol/L (135-145) 04/22/24 12:17
Potassium 4.7 mmol/L (3.5-5.1) 04/22/24 12:17
BUN 30 mg/dl (9-20) H 04/22/24 12:17
Creatinine 1.3 mg/dL (0.7-1.3) 04/22/24 12:17
Glucose 277 mg/dl (70-99) H 04/22/24 12:17
Troponins
04/22/24 04/22/24 04/22/24
12:17 14:48 17:47
Troponin I 0.405 H* 0.407 H* 0.366 H*
04/23/24
00:59
Troponin I 0.348 H*
Vital Signs and I&O:
Vital Signs
Temp Pulse Resp BP Pulse Ox
97.4 F 58 16 167/79 94
04/23/24 08:02 04/23/24 08:15 04/23/24 06:06 04/23/24 08:04 04/23/24 08:04
Vital Signs
Temp Pulse Resp BP Pulse Ox
97.4 F 58 16 167/79 94
04/23/24 08:02 04/23/24 08:15 04/23/24 06:06 04/23/24 08:04 04/23/24 08:04
Intake & Output
04/21/24 04/22/24 04/23/24 04/24/24
06:59 06:59 06:59 06:59
Intake Total 360 / 360
Output Total 1000 / 1000
Balance -640 / -640
Physical Exam
Physical Exam
GEN: NAD. Expressive aphasia
HEENT: MMM
LUNGS: No audible wheeze
CV: SR on tele
ABD: ND
EXT: No edema B/L
NEURO: Gross non-focal
SKIN: No rash
[2024-04-23 09:17] LABS: Blood Urea Nitrogen 25 mg/dl (9-20); Calcium 9.5 mg/dl (8.4-10.2); Carbon Dioxide 25 mmol/L (22-30); Chloride 106 mmol/L (98-107); Estimated Creatinine Clearance 60 ml/min; Glucose 94 mg/dl (70-99); Potassium 4.5 mmol/L (3.5-5.1); eGFR > 60.00
[2024-04-23 09:19] LABS: Glycohemoglobin (HgbA1c) 7.2 % (4.0-5.6)
[2024-04-23 09:37] LABS: Sodium 141 mmol/L (135-145)
--- NOTE | 2024-04-23 09:45 | PTOTSP ---
Video Swallow Study
Summary: Patient presents with WFL-mild oral stage and mild pharyngeal dysphagia with silent aspiration of consecutive straw sips of thin liquids. See patient care note for full details.
Recommendations:
1. IDDSI Level 6 Soft/Bite Sized, IDDSI Level 0 Thin Liquids
2. Medications: whole and/or crushed in puree
3. Strategies/precautions: upright to 90 degrees, full supervision and assistance to use strategies, no straws, small single sips/bites, slow rate, oral care 3x daily
4. Dysphagia therapy at the acute care level.
[2024-04-23] MEDS: LOW STRENGTH ASPIRIN 81 MG PO (10:14)
[2024-04-23] MEDS: CRESTOR 20 MG PO (10:14)
[2024-04-23] MEDS: PLAVIX 75 MG PO (10:14)
[2024-04-23] MEDS: JANUVIA 100 MG PO (10:14)
[2024-04-23] MEDS: COREG 12.5 MG PO ×2 (10:15→20:08)
[2024-04-23] MEDS: VITAMIN D3 (cholecalciferol) 50 MCG PO (10:15)
[2024-04-23] MEDS: NAMENDA 10 MG PO (10:15)
[2024-04-23] MEDS: LANTUS 0.16 UNITS SC (10:15)
[2024-04-23] MEDS: SYNTHROID 75 MCG PO (10:15)
[2024-04-23] MEDS: ZESTRIL 10 MG PO (10:15)
[2024-04-23] MEDS: PROTONIX 40 MG PO (10:15)
--- NOTE | 2024-04-23 10:27 | CM ---
Chart reviewed. Patient is independent of ADLS with dementia, lives with his who recently suffered a stroke, in a 1 STH, 2 IAN, unsteady on his feet and does not use any DME but has a SPC and RW. Patient with supportive son, Sudhakar. Patient
is staying at [facility]. PT/OT evaluation to have patient go to SNF and then Respite. Plan is for the patient to go to [facility] when medically stable. CM to follow
[2024-04-23 10:29] VITALS: BMI 21.6
[2024-04-23 11:02] VITALS: BP 103/45
--- NOTE | 2024-04-23 12:07 | W.PN.HOSP.TC ---
Addendum entered and electronically signed by Marya Perez MD 04/23/24 13:06:
I personally performed a history and physical exam of the patient and discussed management with the resident. I reviewed the resident's note and agree with the documented findings and plan of care HPI/CC.
CVS: S1-S2 normal
Chest: CTA B/L
Abdomen: Soft, NT / Bowel sounds present
Extremities: No edema,
# Non-STEMI
Continue aspirin, Plavix, statin, beta-blockers and lisinopril
Medical management only per discussion with family
No cardiac catheterization
Continue heparin drip and switch to Eliquis tomorrow along with Plavix. Will need to stop aspirin at that time
Echo 04/22/2024-normal LV size, wall thickness, moderately reduced LVEF. Hypokinesis of the mid to distal anteroseptal subramanian. Akinesis of the inferior apical and anteroapical and apical LV thrombus. EF 35%. Stage I diastolic dysfunction. Mild MR
# Aspiration pneumonia-continue ceftriaxone
Modified diet
# History of TIA-continue antiplatelets and increased dose of statin
# Diabetes-continue Lantus, NovoLog
# Hyperlipidemia-continue increased dose of statin
# Hypertension-continue beta-blockers and lisinopril
# Dementia-progressive
# Dysphagia
# DNR
Discussed cardiology
Discussed with nursing
Discussed with at bedside
Case management correspondence reviewed
Hopefully patient can be discharged tomorrow.
Original Note:
Today's Communication/Plan
-
Continue heparin gtt
Switch to eliquis 5 mg BID in am
Continue Plavix
Stop ASA in am
Assessment / Plan
Assessment / Plan
IMPRESSION:
Chest pain likely due to non-STEMI
Cough likely related to aspiration pneumonia
HFrEF
History of TIA
Type 2 diabetes mellitus
Hyperlipidemia
Hypertension
Dementia
PLAN:
NSTEMI
Denies CP, SOB
Morphine, oxygen, nitroglycerin, aspirin
Troponin is 0.405, trend troponin levels every 3-6 hours
Repeat EKG
Continue high intensity statin - Rosuvastatin 40 mg
Antiplatelet therapy- Plavix 75, stop ASA
Echo LVEF is 35 % which has decreased from 45 % in one year
Presence of LV apical thrombus
continue heparin gtt until tomorrow and switch to Eliquis in am
Continue Carvedilol
Consults cardiology
Cough likely aspiration PNA
Cough has been chronic but due to patient's dementia and he was inhaling food, he is at a risk for aspirations.
Patient is afebrile with no leukocytosis
CXR - right perihilar region extending along the minor fissure to the lateral pleural surface consistent with pneumonia
IV ceftriaxone 1000 mg every 24
Aspiration precautions
IDDSI-6 soft bites
HFrEF
GDMT therapy- continue carvedilol, MARTHA
EF of 35 % decreased from 45%
History of TIA
Managed with Plavix and statin
Good motor strength, alert to time, place and person
Type 2 diabetes mellitus
Continue to monitor blood glucose level
Start Lantus 16 units and ISS
Non modifiable macrovascular complication of diabetes is CAD,PAD. and CVD
Hyperlipidemia
LDL 78 not at goa, goal is <70
Continue rosuvastatin
Hypertension
Continue lisinopril
Dementia
Speech and swallow study
CODE STATUS-DNR
DVT prophylaxis-heparin
Diet - pureed, soft bites
Anticipated Discharge: 24 - 48 hours
Subjective/Interval History
-
Date of Service: April 23, 2024
Patient has no CP, SOB, palpitations.
Objective Data
-
Labs:
Laboratory Results
09/12/24 09/12/24 09/12/24
00:59 08:29 16:10
WBC 10.5
Hgb 13.1
Hct 40.2
Plt Count 146
APTT 111.8 H 114.1 H Pending
Sodium 141
Potassium 4.5
Chloride 106
Carbon Dioxide 25
BUN 25 H
Creatinine 1.0
Glucose 94
Calcium 9.5
Vital Signs:
Vital Signs
Temp Pulse Resp BP Pulse Ox
98.2 F 58 17 167/79 97
04/23/24 11:00 04/23/24 08:15 04/23/24 11:00 04/23/24 08:04 04/23/24 11:00
I&O
04/22/24 04/23/24 04/24/24
06:59 06:59 06:59
Intake Total 360 / 360 180 / 180
Output Total 1000 / 1000
Balance -640 / -640 180 / 180
Review of Systems
-
All other systems: Reviewed and negative
Physical Exam
-
General: Conversant
HEENT: Normocephalic and Atraumatic
Respiratory: Clear to Auscultation
Cardiac: Regular Rhythm and Murmur (systolic left sternal )
GI: Soft, Nontender and Nondistended
Musculoskeletal: No Edema
Neuro: No Motor Deficits
Psych: Calm
Data Reviewed
-
Labs: Labs Reviewed by me and Discussed with Physician
[2024-04-23 12:54] LABS: Glucose - Point of Care 246 mg/dl (70-99)
--- NOTE | 2024-04-23 14:27 | PN.CDI ---
CDI
- -
CDI:
Physician Documentation Request
Admit Date: 04/22/24 14:32
Dear Doctor Belen,
Please review the following and provide your response in the progress notes.
Clinical Indicators:
Pt admitted with NSTEMI and aspiration pneumonia.
network systems engineer on admission noted Stage 1 pressure injury on upper sacrum.
Physician documentation of the type and location of wounds is required for compliant documentation. Based on the above clinical findings and your assessment, please provide the following in your progress note:
Pt with stage 1 sacral pressure injury POA
Pt with sacral non-pressure injury POA
Other
Use of terms such as suspected, likely, concern for, or probable (associated with a specific diagnosis that is being evaluated, monitored, or treated as if it exists) are acceptable and can be coded in the inpatient setting, when documented at the
time of discharge.
Thank you,
Caty Vaz RN, BSN
CDI Specialist
Available via [place] [employer]
Please use your independent medical judgment in providing your response.
*Source: National Pressure Ulcer Advisory Panel (NPUAP)
[2024-04-23 15:01] VITALS: BP 135/90
[2024-04-23] MEDS: FARXIGA 10 MG PO (15:05)
[2024-04-23] MEDS: NOVOLOG FLEXPEN-LOW RESISTANCE 2 UNITS SC (15:06)
[2024-04-23] MEDS: HALDOL 1 MG PO (15:06)
[2024-04-23 15:17] LABS: APTT 102.1 Sec (23.4-35.0)
--- NOTE | 2024-04-23 15:18 | CM ---
Pricing on Eliquis 5mg BID is $47 for a 30 day supply through the patients prescription plan.
[2024-04-23] MEDS: STERILE WATER FOR INJECTION 10 ML IV (16:02)
[2024-04-23] MEDS: ROCEPHIN 1000 MG IV (16:02)
[2024-04-23] MEDS: HEPARIN 25000 UNITS/250 ML IV (16:03)
[2024-04-23] MEDS: CRESTOR 40 MG PO (17:33)
[2024-04-23 17:34] LABS: Glucose - Point of Care 80 mg/dl (70-99)
[2024-04-23 19:02] VITALS: BP 149/54
[2024-04-23 21:05] LABS: Glucose - Point of Care 74 mg/dl (70-99)
[2024-04-23 22:07] LABS: APTT 158.9 Sec (23.4-35.0)
[2024-04-24 04:25] VITALS: BP 160/58
[2024-04-24 05:02] LABS: Hematocrit 37.8 % (39.0-52.0); Hemoglobin 12.8 g/dL (13.0-18.0); Mean Corp Hgb Conc. 33.9 g/dL (33.0-37.0); Mean Corpuscular Hgb 29.6 pg (27.0-31.0); Mean Corpuscular Volume 87.5 fL (80.0-94.0); Mean Platelet Volume 9.9 fL (7.4-10.4); Platelet Count 155 10^3/uL (130-400); Red Blood Cell Count 4.32 10^6/uL (4.70-6.10); Red Cell Dist. Width 13.3 % (11.5-14.5); White Blood Cell Count 10.2 10^3/uL (4.8-10.8)
[2024-04-24 05:41] LABS: APTT 167.1 Sec (23.4-35.0)
[2024-04-24 05:56] LABS: Blood Urea Nitrogen 25 mg/dl (9-20); Calcium 9.6 mg/dl (8.4-10.2); Carbon Dioxide 23 mmol/L (22-30); Estimated Creatinine Clearance 57 ml/min; Glucose 72 mg/dl (70-99); Potassium 4.1 mmol/L (3.5-5.1); Sodium 141 mmol/L (135-145); eGFR > 60.00
[2024-04-24 06:09] LABS: Chloride 105 mmol/L (98-107)
[2024-04-24 07:49] VITALS: BP 149/102
--- NOTE | 2024-04-24 07:55 | PTCARENOTE ---
Assumed care of pt from prev nsg shift, AAOX1, pt confused to time & place, which is unchanged from baseline. Pt w/expressive aphasia but able to make needs known. Pt w/medsitter & bed alarm in place for safety; Pt much more cooperative this AM.
Nightshift reported pt slept much better last night. VS stable w/HR in the 50's-60's. Pt sent for CXR this AM as ordered. Plan of care ongoing.
[2024-04-24 08:40] LABS: Glucose - Point of Care 74 mg/dl (70-99)
[2024-04-24] MEDS: COREG 12.5 MG PO (09:32)
[2024-04-24] MEDS: ELIQUIS 5 MG PO (09:33)
[2024-04-24] MEDS: ZESTRIL 10 MG PO (09:33)
[2024-04-24] MEDS: PLAVIX 75 MG PO (09:33)
[2024-04-24] MEDS: NAMENDA 10 MG PO (09:33)
[2024-04-24] MEDS: NOVOLOG FLEXPEN-LOW RESISTANCE SC ×2 (09:33→12:46)
[2024-04-24] MEDS: VITAMIN D3 (cholecalciferol) 50 MCG PO (09:33)
[2024-04-24] MEDS: SYNTHROID 75 MCG PO (09:33)
[2024-04-24] MEDS: PROTONIX 40 MG PO (09:34)
[2024-04-24] MEDS: FARXIGA 10 MG PO (09:34)
[2024-04-24] MEDS: LANTUS 0.16 UNITS SC (09:34)
[2024-04-24] MEDS: JANUVIA 100 MG PO (09:34)
--- NOTE | 2024-04-24 09:59 | W.PN.CARDCBS ---
Addendum entered and electronically signed by Juan Napoles MD 04/24/24 12:36:
I saw and examined the patient.
The Bench Molder's note was reviewed and I agree with the note.
Comment:
GEN: No distress, awake, Ox3
HEENT: supple, anicteric, mmm
LUNGS: CTA, no wheezes/rales
CV: Reg, S1/S2, 1/6 syst LSB, no gallop
ABD: soft, BS+, NT/ND
EXT: No edema
NEURO: Gross non-focal
SKIN: No rash
Plan:
No further chest pains. Continue medical therapy for non-STEMI with LV thrombus.
Continue Coreg, lisinopril, Farxiga, Crestor.
Continue Eliquis and aspirin.
Check labs in 1 week.
Okay for transfer to SNF.
Original Note:
Today's Communication / Plan
-
continue med therapy of new CM - eliquis, plavix, coreg, lisinopril, farxiga, crestor
CBC/BMP/mag in 1 week
plan for SNF upon DC
OP cardiac follow up arranged
Impression / Plan
-
PCP: Dr. Castro
Cardiology: Dr. Cavanaugh
Impression:
Chest pain
NSTEMI, initial Troponin 0.405, peaked at 0.407
CAD
s/p PCI, possibly LAD, at [facility] in 1992
IL and LAD PCI at [facility] 2001
patent LAD stent and TEAROOM HOST/HOSTESS RCA by cath at 2012
ICM EF 35% by echo 10/2019, improved to 45% by echo 03/06/23, down to 35% by echo 04/22/24
cLBBB
PAD
s/p Right CEA and known TEAROOM HOST/HOSTESS left carotid
h/o CVA with residual expressive aphasia
Hypertension
Diabetes
Dementia
History of AAA 3.5 cm
Former smoker
LV thrombus on echo 04/22/24
DNR code status
Echo 03/06/23: EF 45% with severe distal anteroseptal and apical hypokinesis, stage I diastolic dysfunction, mild MR
Echo 04/22/24: EF 35%, stage I diastolic dysfunction, mild MR, new apical LV thrombus present
Plan:
-He presented with chest pain. Troponin peaked at 0.407. EKG with chronic left bundle branch block. Echocardiogram showed new cardiomyopathy with EF 35% and evidence of LV thrombus. He has known CAD.
-After discussion with family given patient's comorbidities including dementia, h/o CVA with residual deficits, plan for medical mgmt of new cardiomyopathy and CP
-CP free overnight
-continue eliquis, plavix. hgb 12.8 on 04/24
-continue coreg, lisinopril, farxiga. consider addition of aldactone as OP as BP tolerates
-continue increased dose crestor
-Would not consult cardiac rehab due to need for ongoing PT/OT.
-Does not appear to be volume overloaded at present, however would monitor volume status as an outpatient. Not presently on diuretic therapy.
-plan for SNF upon DC and respite
-CBC/BMP/mag in 1 week
-OP cardiac follow up arranged
-ok for DC today from cardiac standpoint
HPI: Patient came to [facility] today from home with chest pain and cardiology has been consulted. Patient lives at home with his and has expressive aphasia, but is able to stand on his own and walk around the home and driveway. Patient grabbed his
chest last night and his asked him if he was in pain and he said yes. Patient took 2 TUMS and belched and seemed to feel better, but pain returned an hour later. Patient eventually fell asleep without additional intervention. Patient awoke
today and seemed to be feeling well, he ate his breakfast without issue, but an hour later his saw him grabbing his chest again and asked him if he was having pain and he said yes. Patient denies chest pain currently. Initial Troponin 0.4. ECG
shows chronic LBBB. Patient has a h/o CAD. He previously followed at [facility] with Dr. Meneses. Patient had a cath at [facility] in 2001 that showed a patent previously placed LAD stent and a TEAROOM HOST/HOSTESS of the RCA. Patient had a cath at 2012 that showed a patent LAD
stent and known TEAROOM HOST/HOSTESS RCA. Last ischemic evaluation was in 2020 when he was diagnosed with lung cancer. Patient with a large fixed defect on mibi imaging. Patient completed radiation therapy for his lung cancer.
Progress Note - Acds Block 1 Operator
Subjective
Date of Service: April 24, 2024
no CP overnight. pleasantly confused
Objective
Labs:
04/24/24 04:40
04/24/24 04:40
Labs
Hgb 12.8 g/dL (13.0-18.0) L 04/24/24 04:40
Hct 37.8 % (39.0-52.0) L 04/24/24 04:40
Plt Count 155 10^3/uL (130-400) 04/24/24 04:40
APTT 167.1 Sec (23.4-35.0) H* 04/24/24 04:40
Sodium 141 mmol/L (135-145) 04/24/24 04:40
Potassium 4.1 mmol/L (3.5-5.1) 04/24/24 04:40
BUN 25 mg/dl (9-20) H 04/24/24 04:40
Creatinine 1.0 mg/dL (0.7-1.3) 04/24/24 04:40
Glucose 72 mg/dl (70-99) 04/24/24 04:40
Troponins
04/22/24 04/22/24 04/22/24
12:17 14:48 17:47
Troponin I 0.405 H* 0.407 H* 0.366 H*
04/23/24
00:59
Troponin I 0.348 H*
Vital Signs and I&O:
Vital Signs
Temp Pulse Resp BP Pulse Ox
97.7 F 63 20 149/102 96
04/24/24 07:47 04/24/24 08:30 04/24/24 07:47 04/24/24 07:49 04/24/24 07:47
Vital Signs
Temp Pulse Resp BP Pulse Ox
97.7 F 63 20 149/102 96
04/24/24 07:47 04/24/24 08:30 04/24/24 07:47 04/24/24 07:49 04/24/24 07:47
Intake & Output
04/22/24 04/23/24 04/24/24 04/25/24
07:59 07:59 07:59 07:59
Intake Total 360 / 360 280 / 280
Output Total 1000 / 1000
Balance -640 / -640 280 / 280
Physical Exam
Physical Exam
GEN: No distress, awake, alert, oriented to self
HEENT: supple, anicteric, mmm, eomi
LUNGS: CTA B/L, no wheezes/rales
CV: Reg, S1/S2, no murmur
ABD: soft, BS+, NT/ND
EXT: No cyanosis, clubbing, edema
NEURO: Gross non-focal
SKIN: Warm, pink, dry. No rash
[2024-04-24 11:14] VITALS: BP 118/67
[2024-04-24 12:22] LABS: Glucose - Point of Care 93 mg/dl (70-99)
--- NOTE | 2024-04-24 12:56 | W.PN.UPDATE ---
Update Note
Progress Note Update
I personally performed a history and physical exam of the patient and discussed management with the resident. I reviewed the resident's note and agree with the documented findings and plan of care HPI/CC.
# Non-STEMI
Continue Plavix, statin, beta-blockers and lisinopril
Medical management only per discussion with family
No cardiac catheterization
Eliquis along with Plavix.
Echo 04/22/2024-normal LV size, wall thickness, moderately reduced LVEF. Hypokinesis of the mid to distal anteroseptal subramanian. Akinesis of the inferior apical and anteroapical and apical LV thrombus. EF 35%. Stage I diastolic dysfunction. Mild MR
# Aspiration pneumonia-continue ceftriaxone
Modified diet
# History of TIA-continue antiplatelets and increased dose of statin
# Diabetes-continue Lantus, NovoLog
# Hyperlipidemia-continue increased dose of statin
# Hypertension-continue beta-blockers and lisinopril
# Dementia-progressive
# Dysphagia
# DNR
Discussed cardiology
Discussed with nursing
D/W Case management
OK for discharge to [facility]
Discharge cordination time over 35 min
--- NOTE | 2024-04-24 14:16 | W.PN.HOSP.TC ---
Today's Communication/Plan
-
Okay to discharge to [facility] today
Transport pick up driver time 5:30 pm. Discussed with CM
Dispo meds
Eliquis and Plavix for 3 months then just Plavix. Patient was not taking ASA at home.
Rosuvastatin 40 QD
Pantoprazole 40 QD
Continue all other home medication
Assessment / Plan
Assessment / Plan
IMPRESSION:
Chest pain likely due to non-STEMI
Cough likely related to aspiration pneumonia
HFrEF
History of TIA
Type 2 diabetes mellitus
Hyperlipidemia
Hypertension
Dementia
PLAN:
NSTEMI
Denies CP, SOB
Morphine, oxygen, nitroglycerin, aspirin
Troponin trending down
Echo LVEF is 35 % which has decreased from 45 % in one year
Presence of LV apical thrombus
Switch to Eliquis 5 mg twice daily
Plan is to discharge to SNF today and then to Respite
Continue Eliquis and Plavix for 3 months and then just Plavix. Stop aspirin
Continue rosuvastatin 40 mg
Continue pantoprazole 40 mg to prevent GI bleed
Cough likely aspiration PNA
Cough has been chronic but due to patient's dementia and he was inhaling food, he is at a risk for aspirations.
Patient is afebrile with no leukocytosis
CXR - right perihilar region extending along the minor fissure to the lateral pleural surface consistent with pneumonia
IV ceftriaxone 1000 mg every 24
Aspiration precautions
Discharge on Augmentin for 2 more days to complete 5-day course
HFrEF
GDMT therapy- continue carvedilol, MARTHA
EF of 35 % decreased from 45%
History of TIA
Managed with Plavix and statin
Good motor strength, alert to time, place and person
Type 2 diabetes mellitus
Continue to monitor blood glucose level
Lantus 16 units and ISS
Non modifiable macrovascular complication of diabetes is CAD,PAD. and CVD
Hyperlipidemia
LDL 78 not at goa, goal is <70
Continue rosuvastatin
Hypertension
Continue lisinopril
Dementia
Speech and swallow study
Continue all other home medication on discharge.
CODE STATUS-DNR
DVT prophylaxis-heparin
Diet - pureed, soft bites
Anticipated Discharge: Today
Subjective/Interval History
-
Date of Service: April 24, 2024
Patient is calm. Denies chest pain, shortness of breath
Objective Data
-
Labs:
Laboratory Results
04/24/24
04:40
WBC 10.2
Hgb 12.8 L
Hct 37.8 L
Plt Count 155
APTT 167.1 H*
Sodium 141
Potassium 4.1
Chloride 105
Carbon Dioxide 23
BUN 25 H
Creatinine 1.0
Glucose 72
Calcium 9.6
Vital Signs:
Vital Signs
Temp Pulse Resp BP Pulse Ox
98.4 F 57 20 118/67 94
04/24/24 11:11 04/24/24 11:15 04/24/24 11:11 04/24/24 11:14 04/24/24 11:11
I&O
04/23/24 04/24/24 04/25/24
06:59 06:59 06:59
Intake Total 360 / 360 280 / 280
Output Total 1000 / 1000
Balance -640 / -640 280 / 280
Review of Systems
-
History Source: Patient
All other systems: Reviewed and negative
Physical Exam
-
General: Comfortable
HEENT: Normocephalic and Atraumatic
Respiratory: Rhonchi (bilateral bases)
Cardiac: S1/S2 and Murmur
GI: Soft, Nontender and Nondistended
Musculoskeletal: No Edema
Neuro: Other (not oriented, dementia )
Psych: Calm
Data Reviewed
-
Diagnostic Radiology: Report Reviewed by me and Discussed with Physician
Labs: Labs Reviewed by me and Discussed with Physician
[2024-04-24 14:28] VITALS: BP 120/58
--- NOTE | 2024-04-24 15:03 | W.DCSUMMARY ---
Discharge Summary
Discharge Data
Date of Admission: 04/22/24
Date of Discharge: 04/24/24
-
Pending Results: No
Hospital Course
Discharging Physician : Dr Long Glover, Dr Marya Perez
Disposition : Nursing facility
Primary care physician : Unknown
Principal Discharge diagnosis :
Non-STEMI
Cough likely related to aspiration pneumonia
HFrEF
Chronic Discharge diagnosis :
History of TIA
Type 2 diabetes mellitus
Hyperlipidemia
Hypertension
Dementia
Hospital Course :
78-year-old male with past medical history of hypertension, hyperlipidemia, [place] x2 s/p stent placed TIA type 2 diabetes, COPD (emphysema) dementia, left bundle branch block, ischemic cardiomyopathy former smoker, presented to the ED with chest pain.
Patient described the left sided chest pain as dull,crushing, non radiating to the shoulders, which comes and goes. EKG showed NSTEMI. On labs troponin were elevated 0.407. In the ED his vital signs were stable. At the time of examination
patient did not complain of any chest pain. Patient was not able to answer most of the question due to dementia. All the history was provided by his . Patient was started on heparin gtt to prevent clot. Cardiology were consulted repeated
EKG were negative for STEMI. troponin continued to trend down ( 0.366). Patient was transferred to IVU. Chest x-ray showed right lower lobe consolidation . And patient was started on IV ceftriaxone Echocardiogram showed decrease in the left
ventricular ejection fraction to 35% from 45%. He also has a history of LV thrombus and was seen by Dr Cavanaugh outpatient. Cardiology planned for cath as the patient was at high risk for carotis artey stenosis with history of tw previous stents.
However the patient's family wished for more conservative approach given his progressively worsening dementia so the declined. Patient was also given Haldol for agitation, pulling the IV lines, screaming at the nurses. Patient was on heparin drip
for 48 hours and then transitioned to Eliquis 5 mg bid. Aspirin was stopped. Plavix was continued. Patient remained asymptomatic. On discussion with family and PT/OT it was decided to proceed with SNF for prolonged rehab and then to respite as
patient's has recent stroke and was not able to take care of him.
On the day of discharge patient was hemodynamically stable, denied chest pain, shortness of breath, palpitations. Labs showed decreasing troponin levels. Patient was discharged with Eliquis and Plavix for 3 months and then just Plavix only. He
would also continue rosuvastatin 40 mg and pantoprazole 40 mg(to prevent GI bleed). Advised aspiration precaution- IDDSI-6, pureed diet.
Important imaging findings :
Chest x-ray 04/24/2024
There is moderate parenchymal air space disease in the right perihilar region extending along the minor fissure to the lateral pleural surface consistent with pneumonia. Follow-up imaging to resolution is recommended to exclude the possibility of
underlying hilar neoplasm.
EKG 04/22
LIMB LEAD REVERSAL SINUS RHYTHM WITH 1ST DEGREE A-V BLOCK LEFT BUNDLE BRANCH BLOCK
Echocardiogram
Normal left ventricular size. Normal left ventricular wall thickness. Moderately reduced left ventricular systolic function. Hypokinesis of the mid to distal anteroseptal subramanian. Akinesis of the inferoapical and anteroapical wall with apical LV
thrombus. LV ejection fraction is 35% by visual assessment. Stage I diastolic dysfunction suggestive of abnormal relaxation. Normal right ventricular size and function. Mild mitral regurgitation. Aortic sclerosis without stenosis.
Compared to previous echo 03/06/23, the ejection fraction has decreased from 45% to 35%. There is also a new apical LV thrombus present.
Procedure findings : none
Discharge Plan
-
Patient Disposition: Senior Care/SNF
Discharge Diagnosis/Procedures: NSTEMI
Cough likely related to aspiration pneumonia
HFrEF
History of TIA
Type 2 diabetes mellitus
Hyperlipidemia
Hypertension
Dementia
Condition: Fair
Diet: Other diet
Additional Diets: 50 ounce FR.
Pureed diet with thin liquids, Medications - crushed in puree, upright to 90 degrees, small single sips/bites, slow rate, multiple swallows, intermittent cough/re-swallow, alternate sips/bites
Activity: With assistance
Driving Restrictions: No driving
Blood Work: CBC/BMP/magnesium in 1 week
Other Services: PT, OT and ST
Specialty Instructions: Weigh Daily- Call MD for wt gain/loss 3 lbs overnight/5 lbs in 1 week
Referrals:
[facility] [Other] ( )
Noman Cavanaugh DO [Active] - 06/25/24 9:20 am (You have an appt to see Dr. Cavanaugh at the [facility] office on 06/25/24 at 9:20 AM.)
Jose Maria Castro MD [Family Provider] -
Additional Discharge Medication Instructions: Stop aspirin
Take Eliquis and Plavix for 3 months for non STEMI/clot prevention
Continue Plavix only after 3 months for non STEMI
Take rosuvastatin 40 mg once a day for non STEMI
Pantoprazole 40 mg to be taken once a day to prevent GI bleeding
Continue all other home medication
Prescriptions:
New
pantoprazole 40 mg Tablet,Delayed Release (Dr/Ec)
40 mg PO DAILY Qty: 30 0RF
rosuvastatin 40 mg Tablet
40 mg PO QPM Qty: 30 0RF
Eliquis 5 mg Tablet
5 mg PO BID Qty: 30 0RF
amoxicillin-pot clavulanate 875-125 mg tablet
1 tab PO Q8H 2 Days Qty: 6 0RF
Continued
clopidogrel 75 MG tablet
75 mg PO DAILY
ascorbic acid-zinc sulfate 200-100 mg Tablet
1 tab PO DAILY
lisinopril 10 mg Tablet
10 mg PO DAILY
memantine 10 mg Tablet
10 mg PO DAILY
cholecalciferol (vitamin D3) [Vitamin D3] 25 mcg (1,000 unit) Tablet
50 mcg PO DAILY
alogliptin 12.5 mg Tablet
12.5 mg PO DAILY
empagliflozin 25 mg Tablet
12.5 mg PO DAILY
levothyroxine 75 mcg Tablet
75 mcg PO DAILY
magnesium glycinate 100 mg Tablet
100 mg PO DAILY
insulin degludec 100 unit/mL (3 mL) Insulin Pen
16 unit SC HS
carvedilol 25 mg Tablet
12.5 mg PO BID Qty: 0 0RF
Discontinued
rosuvastatin 40 MG tablet
20 mg PO DAILY
Discharge Orders:
Discharge Patient (As Directed); Ordered 04/24/24
Ordered By: Marya Perez
Care Plan Goals
Care Plan Goals:
Problem: Readiness for enhanced knowledge related to diagnosis and treatment plan
Goal: Understand your diagnosis and treatment plan needs, including medications if applicable.
Instructions: Know your diagnosis, underlying causes and treatment plan options, including medications if applicable. Consult with your health care team to learn about your diagnosis and treatment plan, including medications if applicable.
Discharge Date and Time
Print Language: SYRIAN
[2024-04-24 15:10] VITALS: BP 128/59
[2024-04-24 15:19] VITALS: BP 120/58; PULSE 59; O2SAT 95
[2024-04-24] MEDS: DULCOLAX 10 MG RECTAL (15:26)
[2024-04-24] MEDS: STERILE WATER FOR INJECTION 10 ML IV (15:26)
[2024-04-24] MEDS: ROCEPHIN 1000 MG IV (15:26)
[2024-04-24] MEDS: FLUSH (NSS) 2 FLUSH IV (15:27)
--- NOTE | 2024-04-24 15:30 | CM ---
Addendum entered by Palmira Prince RN 04/24/24 15:32:
Diallo Talamantes
Original Note:
Insurance Authorization approved for [facility] 5 days NRD 04/28, auth # [id number]
--- NOTE | 2024-04-24 17:48 | PTCARENOTE ---
Pt D/C'd to [facility] via ambulance stretcher by [facility]. Report called to Maribeth at [phone]. Pt's IV line & telemetry D/C'd. Pt left w/personal belongings, incl clothing, shoes, & his baseball cap.
--- NOTE | 2024-04-25 14:39 | W.PN.UPDATE ---
Update Note
Progress Note Update
per CDI
Pt with stage 1 sacral pressure injury : wound care was seeing the patient.
== END 2024-04-24 17:30 | DRG 280 ==
LOC: IVU 14:32
PROVIDERS: Physician Assistant Medical; Student in an Organized Health Care Education/Training Program; ADMITTING PHYSICIAN Hospitalist; CONSULT PHYSICIAN Internal Medicine Cardiovascular Disease; EMERGENCY PHYSICIAN Emergency Medicine; FAMILY PHYSICIAN Family Medicine
DX: I21.4 Non-ST elevation (NSTEMI) myocardial infarction (principal); J69.0 Pneumonitis due to inhalation of food and vomit; I50.20 Unspecified systolic (congestive) heart failure; Z87.891 Personal history of nicotine dependence; E11.9 Type 2 diabetes mellitus without complications; I11.0 Hypertensive heart disease with heart failure; Z79.02 Long term (current) use of antithrombotics/antiplatelets; E78.00 Pure hypercholesterolemia, unspecified; F03.A0 Unspecified dementia, mild, without behavioral disturbance, psychotic disturbance, mood disturbance, and anxiety; Z66 Do not resuscitate; L89.151 Pressure ulcer of sacral region, stage 1; Z11.52 Encounter for screening for COVID-19
CPT/HCPCS: 71046; 74230; 80048; 80053; 80061; 82962; 83036; 84484; 85025; 85027; 85730; 87811; 92526; 92610; 92611; 93005; 93306; 96365; 96366; 97116; 97163; 97167; 97530; 99285; Q9950